=== PATIENT | female | born 2000 | race African-American/Black ===

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

== ENCOUNTER 2022-07-30 15:14 | Emergency (ER) | payer MEDICAID, OTHER ==
[~2022-07-30] VITALS: Ht 157.5 cm; Wt 52.0 kg
[~2022-07-30 15:14] MED LIST changes: +AZIT250T12 PO
[2022-07-30 15:17] VITALS: BP 98/62
[2022-07-30] MEDS ORDERED: ACETAMINOPHEN 325MG TABLET PO ONE (18:15)
[2022-07-30] MEDS ORDERED: IBUPROFEN 400MG TABLET PO ONE (18:15)
[2022-07-30] MEDS ORDERED: D-ME118S48 PO (20:13)
== END 2022-07-30 20:34 | disposition home or self-care (01) ==
LOC: ER 15:14
DX: B34.9 Viral infection, unspecified (principal); Z20.822 Contact with and (suspected) exposure to COVID-19
CPT/HCPCS: 71045; 81025; 87426; 87804; 99284; C9803

== ENCOUNTER 2024-08-17 15:16 | Emergency (ER) | payer MEDICAID ==
[~2024-08-17] VITALS: Ht 154.9 cm; Wt 54.0 kg
[~2024-08-17 15:16] MED LIST changes: +BROM118S47 PO; +IBUP-2028 MT
[2024-08-17 15:46] VITALS: O2SAT 98
[2024-08-17] MEDS ORDERED: AMOX-494 MT (19:14)
[2024-08-17] MEDS ORDERED: ACET-2708 MT (19:15)
[2024-08-17] MEDS ORDERED: IBUP-2029 MT (19:16)
[2024-08-17 19:44] VITALS: BP 108/65; PULSE 81; RESP 18; TEMP 36.94740; O2SAT 98
== END 2024-08-17 20:13 | disposition home or self-care (01) ==
LOC: ER 15:16
DX: J02.9 Acute pharyngitis, unspecified (principal); Z20.822 Contact with and (suspected) exposure to COVID-19; Z79.899 Other long term (current) drug therapy
CPT/HCPCS: 87070; 87426; 87430; 99283

== ENCOUNTER 2025-01-17 03:42 | Emergency (ER) | payer OTHER, MEDICAID ==
[~2025-01-17] VITALS: Ht 160 cm; Wt 56.4 kg
[~2025-01-17 03:42] MED LIST changes: +ACET-2708 MT; +AMOX-494 MT; +IBUP-2029 MT
[2025-01-17 04:07] VITALS: O2SAT 100
[2025-01-17] MEDS: ACETAMINOPHEN 325MG TABLET PO ONE (06:44)
[2025-01-17 06:55] VITALS: BP 132/77; PULSE 60; RESP 20; TEMP 36.6; O2SAT 100
== END 2025-01-17 07:10 | disposition home or self-care (01) ==
LOC: ER 03:42
DX: S09.90XA Unspecified injury of head, initial encounter (principal); Z79.899 Other long term (current) drug therapy; X58.XXXA Exposure to other specified factors, initial encounter; Y93.89 Activity, other specified; Y92.410 Unspecified street and highway as the place of occurrence of the external cause; Y92.89 Other specified places as the place of occurrence of the external cause; Y99.8 Other external cause status
CPT/HCPCS: 99284